=== PATIENT | female | born 1990 | race American Indian/Alaskan Native ===

== ENCOUNTER 2018-06-29 11:22 | Emergency (ER) | payer MEDICAID, OTHER ==
[2018-06-29 11:34] VITALS: BMI 22.7
[2018-06-29 11:37] VITALS: TEMP 97.6; O2SAT 100
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
[2018-06-29 12:56] LABS: GRAN % 63.5 % (50.0-68.0); HEMOGLOBIN 12.6 g/dL (12.0-16.0); LYMPH % 27.7 % (22.0-35.0); MEAN CORPUSCULAR HEMOGLOBIN 26.2 pg (25.0-35.0); MEAN CORPUSCULAR HGB CONC 33.2 g/dl (31.0-37.0); MEAN PLATELET VOLUME 10.3 fl (7.0-11.0); MONO % 7.8 % (1.0-6.0); RBC 4.81 10^6/uL (3.5-6.1); RED CELL DISTRIBUTION WIDTH 13.7 % (11.5-14.5); WHITE BLOOD COUNT 6.9 10^3/ul (4.5-11.0)
[2018-06-29 12:57] LABS: BASO # 0.02 K/mm3 (0.0-2.0); BASO % 0.3 % (0.0-3.0); EOS # 0.1 (0.0-0.7); EOS % 0.7 % (1.5-5.0); GRAN # 4.41 (1.4-6.5); LYMPH # 1.9 (1.2-3.4); MONO # 0.5 (0.1-0.6)
[2018-06-29 13:06] LABS: ALB/GLOB RATIO 1.3 (1.1-1.8); ALBUMIN 4.3 g/dL (3.0-4.8); ALT/SGPT 20 U/L (7-56); AST/SGOT 18 U/L (14-36); BLOOD UREA NITROGEN 10 mg/dL (7-21); CALCIUM 9.3 mg/dL (8.4-10.5); GFR NON-AFRICAN AMERICAN > 60
[2018-06-29] MEDS ORDERED: cefTRIAXone (Rocephin) 250 mg Inj IM STA (13:10)
--- NOTE | 2018-06-29 13:21 | US ---
Date of service: 06/29/2018 Indication: abd pain in preg; r/o miscarriage Comparison: None available Technique: Ob transvaginal ultrasound Findings: The uterus measures approximately 10.9 x 5.8 x 9.0 cm. Anteverted. 2 mm yolk sac. The gestational sac measures 1.3 cm and is compatible with a gestational age of 5 weeks 3 days. No pole identified at this time. The right ovary measures 2.8 x 1.9 x 2.7 cm. The left ovary measures 4.9 x 4.4 x 3.9 cm and contains 2.8 cm cyst. Blood flow was demonstrated to both ovaries. Impression: Intrauterine gestational sac consistent with gestational age 5 weeks 3 days. 2 mm yolk sac evident. No evidence of pole at this time. Recommend clinical correlation including SHELVER consultation, quantitative beta hCG, and follow-up as indicated. 2.8 cm right ovarian cyst.
[2018-06-29 14:03] LABS: URINE BILIRUBIN NEGATIVE (NEGATIVE); URINE BLOOD TRACE-INTACT (NEGATIVE); URINE GLUCOSE (UA) NEGATIVE (NEGATIVE); URINE LEUKOCYTE ESTERASE MODERATE Leu/uL (NEGATIVE); URINE PROTEIN NEGATIVE mg/dL (<30 mg/dL); URINE UROBILINOGEN 0.2 E.U./dL (<1 E.U./dL)
[2018-06-29 14:11] LABS: URINE APPEARANCE CLEAR (CLEAR); URINE COLOR YELLOW (YELLOW)
[2018-06-29 14:16] LABS: URINE AMORPHOUS SEDIMENT FEW; URINE BACTERIA LARGE (NEG); URINE WBC 20 - 25 /hpf (0-6)
[2018-06-29 14:47] VITALS: BP 110/60; PULSE 70; RESP 15
[2018-06-29] MEDS ORDERED: Clotrimazole 1% Vaginal Cream(45 gm) VG SCH (22:00)
== END 2018-06-29 14:46 | disposition home or self-care (01) ==
LOC: ED 11:22
DX: O20.0 Threatened abortion (principal); O23.41 Unspecified infection of urinary tract in pregnancy, first trimester; O98.811 Other maternal infectious and parasitic diseases complicating pregnancy, first trimester; B37.3 Candidiasis of vulva and vagina; Z3A.01 Less than 8 weeks gestation of pregnancy
CPT/HCPCS: 76817; 80053; 81001; 84702; 85025; 86850; 86900; 87086; 87491; 87591; 96372; 99282; J0696

== ENCOUNTER 2018-08-05 09:34 | Emergency (ER) | payer MEDICAID ==
[2018-08-05 09:34] VITALS: BMI 22.7
[2018-08-05 09:43] VITALS: O2SAT 99
--- NOTE | 2018-08-05 10:32 | ED PDOC ---
Arrival/HPI - History of Present Illness Narrative History of Present Illness (Text): 08/05/18 9:44 Patient is a 28 year old at approximately 10 weeks gestation who presented with lower abdominal pain that started yesterday morning. Patient describes the pain as sharp in nature, intermittent. Rates it a 5/10 on pain scale. She has not tried taking anything for the pain. This morning she reports having two episodes of NBNB vomiting. She denies any recent intercourse, vaginal bleeding, fevers/chills, chest pain, palpitations, sob, dysuria. States that although was not planned, it is desired. PMD: [facility] clinic Time/Duration: 24 hours Symptom Onset: Gradual Symptom Course: Unchanged Quality: Other (sharp, period like pain) Severity Level: 5 <Gracie Sidhu - Last Filed: 08/05/18 15:02> <Wilver Stover - Last Filed: 08/05/18 18:19> - General Chief Complaint: Abdominal Pain Time Seen by Provider: 08/05/18 09:44 Past Medical History - Provider Review Nursing Documentation Reviewed: Yes - Infectious Disease Hx of Infectious Diseases: None - Tetanus Immunization Tetanus Immunization: Unknown - Reproductive Menopause: No - Past Medical History Past Medical History: No Previous - Cardiac Hx Cardiac Disorders: No - Pulmonary Hx Respiratory Disorders: No - Neurological Hx Neurological Disorder: No - HEENT Hx HEENT Disorder: No - Renal Hx Renal Disorder: No - Endocrine/Metabolic Hx Endocrine Disorders: No - Hematological/Oncological Hx Blood Disorders: Yes Hx Anemia: Yes - Integumentary Hx Dermatological Disorder: No - Musculoskeletal/Rheumatological Hx Musculoskeletal Disorders: No - Gastrointestinal Hx Gastrointestinal Disorders: No - Genitourinary/Gynecological Hx Genitourinary Disorders: Yes Hx Urinary Tract Infection: Yes - Psychiatric Hx Psychophysiologic Disorder: No Hx Substance Use: No - Past Surgical History Past Surgical History: No Previous - Surgical History Other/Comment: AB - Anesthesia Hx Anesthesia: No - Suicidal Assessment Feels Threatened In Home Enviroment: No <Gracie Sidhu - Last Filed: 08/05/18 15:02> Family/Social History - Physician Review Nursing Documentation Reviewed: Yes Family/Social History: Unknown Family HX Smoking Status: Never Smoked Hx Alcohol Use: No Hx Substance Use: No Hx Substance Use Treatment: No <Gracie Sidhu - Last Filed: 08/05/18 15:02> Allergies/Home Meds <Gracie Sidhu - Last Filed: 08/05/18 15:02> <Wilver Stover - Last Filed: 08/05/18 18:19> Allergies/Adverse Reactions: Allergies No Known Allergies Allergy (Verified 06/19/18 09:26) Review of Systems - Review of Systems Constitutional: Normal. absent: Fatigue, Fevers Eyes: Normal ENT: Normal. absent: Hearing Changes Respiratory: Normal. absent: SOB, Cough, Wheezing Cardiovascular: Normal. absent: Chest Pain, Palpitations Gastrointestinal: Normal, Abdominal Pain, Vomiting. absent: Constipation, Diarrhea, Nausea Genitourinary Female: Normal. absent: Dysuria, Hematuria, Vaginal Bleeding, Vaginal Discharge Musculoskeletal: Normal. absent: Back Pain Skin: Normal. absent: Rash Neurological: Normal. absent: Headache, Dizziness <Gracie Sidhu - Last Filed: 08/05/18 15:02> Physical Exam Vital Signs Reviewed: Yes Vital Signs Temp Pulse Resp BP Pulse Ox 08/05/18 09:39 97.5 F L 83 18 118/72 99 Temperature: Afebrile Blood Pressure: Normal Pulse: Regular Respiratory Rate: Normal Appearance: Positive for: Well-Appearing, Non-Toxic, Comfortable Pain Distress: None Mental Status: Positive for: Alert and Oriented X 3 - Systems Exam Head: Present: Atraumatic, Normocephalic Pupils: Present: PERRL Extroacular Muscles: Present: EOMI Mouth: Present: Moist Mucous Membranes Neck: Present: Normal Range of Motion Respiratory/Chest: Present: Clear to Auscultation, Good Air Exchange. No: R espiratory Distress, Accessory Muscle Use Cardiovascular: Present: Regular Rate and Rhythm, Normal S1, S2 Abdomen: Present: Tenderness (Suprapubic), Normal Bowel Sounds, Other (Gravid abdomen). No: Distention, Peritoneal Signs, Rebound, Guarding Back: Present: Normal Inspection. No: CVA Tenderness Upper Extremity: Present: Normal Inspection Lower Extremity: Present: Normal Inspection Neurological: Present: GCS=15, CN II-XII Intact Skin: Present: Warm, Dry, Normal Color Psychiatric: Present: Alert, Oriented x 3 <Gracie Sidhu - Last Filed: 08/05/18 15:02> Vital Signs Temp Pulse Resp BP Pulse Ox 08/05/18 14:12 98.2 F 68 18 106/58 L 99 08/05/18 12:42 70 16 113/70 08/05/18 09:39 97.5 F L 83 18 118/72 99 <Wilver Stover - Last Filed: 08/05/18 18:19> Medical Decision Making ED Course and Treatment: 08/05/18 09:44 Patient seen and examined at bedside. Patient reports having lower abdominal pain x 1 day that was accomapanied by two episodes of vomiting this morning. On exam, patient with suprapubic tenderness. Will order Transvaginal US, CBC, CMP, Type and Screen, beta hcg, Urinalysis 08/05/18 13:56 Imaging and labs results reviewed. Patient with UTI. Will prescribe Marcobid 100mg PO BID and have patient follow up with OBGYN outpatient. - RAD Interpretation Narrative RAD Interpretations (Text): 08/05/18 13:58 Transvaginal US: Live single intrauterine with estimated gestational age of 10 weeks and 6 days by gestational sac calculation and 11 weeks by crown rump length. heart rate 158 bpm. Clinical Rehabilitation Aide: Radiologist <Gracie Sidhu - Last Filed: 08/05/18 15:02> ED Course and Treatment: In agreement with resident note, which includes further HPI details. Patient was seen and evaluated with resident, came up with plan and treatment together. 28 y/o F p/w suprapubic pain in . On exam, suprapubic tenderness. - Lab Interpretations Lab Results: 08/05/18 11:00 08/05/18 11:00 Lab Results 08/05/18 11:00: Sodium 138, Potassium 3.7, Chloride 107, Carbon Dioxide 23, An ion Gap 12, BUN 6 L, Creatinine 0.7, Est GFR ( Amer) > 60, Est GFR (Non- Af Amer) > 60, Random Glucose 77, Calcium 9.0, Total Bilirubin 0.4, AST 15, ALT 18, Alkaline Phosphatase 44, Total Protein 7.0, Albumin 3.7, Globulin 3.3, Albumin/Globulin Ratio 1.1, Lipase 87 08/05/18 11:00: WBC 6.2, RBC 4.65, Hgb 12.1, Hct 37.1, MCV 79.8 L, MCH 26.0, MCHC 32.6, RDW 13.3, Plt Count 252, MPV 9.6, Gran % 68.0, Lymph % (Auto) 25.4, [place] % (Auto) 5.0, Eos % (Auto) 1.4 L, Baso % (Auto) 0.2, Gran # 4.24, Lymph # (Auto) 1.6, [place] # (Auto) 0.3, Eos # (Auto) 0.1, Baso # (Auto) 0.01 08/05/18 11:00: Blood Type AB POSITIVE, Antibody Screen Negative, BBK History Checked Patient has bt 08/05/18 11:00: Beta HCG, Quant 68670.00 H 08/05/18 10:10: Urine Color Yellow, Urine Appearance Sl cloudy, Urine pH 6.0, Ur Specific [place] 1.025, Urine Protein Negative, Urine Glucose (UA) Negative, Urine Ketones Negative, Urine Blood Small H, Urine Nitrate Negative, Urine Bilirubin Negative, Urine Urobilinogen 0.2, Ur Leukocyte Esterase Small H, Urine RBC 5 - 10, Urine WBC 10 - 15, Ur Epithelial Cells 10 - 12, Urine Bacteria Many, Urine Other Uyeast - RAD Interpretation Radiology Orders: 08/05/18 10:49 OB TRANSVAGINAL [US] Stat <Wilver Stover - Last Filed: 08/05/18 18:19> Disposition/Present on Arrival - Present on Arrival Any Indicators Present on Arrival: No History of DVT/PE: No History of Uncontrolled Diabetes: No Urinary Catheter: No History of Decub. Ulcer: No History Surgical Site Infection Following: None - Disposition Have Diagnosis and Disposition been Completed?: Yes Disposition Time: 13:44 Patient Plan: Discharge <Gracie Sidhu - Last Filed: 08/05/18 15:02> <Wilver Stover - Last Filed: 08/05/18 18:19> - Disposition Diagnosis: Urinary tract infection Disposition: HOME/ ROUTINE Condition: GOOD Discharge Instructions (ExitCare): Urinary Tract Infections in Adults Additional Instructions: - Please complete course of antibiotics - Follow up with [facility] within 3-5 days - If symptoms worsen, please return to the ED Prescriptions: Nitrofurantoin Macrocrystals [Macrobid] 100 mg PO BID #14 cap Forms: [employer] (Welsh)
[2018-08-05 11:27] LABS: ALB/GLOB RATIO 1.1 (1.1-1.8); ALBUMIN 3.7 g/dL (3.0-4.8); ALT/SGPT 18 U/L (7-56); AST/SGOT 15 U/L (14-36); BLOOD UREA NITROGEN 6 mg/dL (7-21); GFR NON-AFRICAN AMERICAN > 60; LIPASE 87 U/L (23-300)
[2018-08-05 11:30] LABS: BASO # 0.01 K/mm3 (0.0-2.0); BASO % 0.2 % (0.0-3.0); EOS # 0.1 (0.0-0.7); EOS % 1.4 % (1.5-5.0); GRAN # 4.24 (1.4-6.5); HEMOGLOBIN 12.1 g/dL (12.0-16.0); LYMPH # 1.6 (1.2-3.4); LYMPH % 25.4 % (22.0-35.0); MEAN CELL VOLUME 79.8 fl (80.0-105.0); MEAN CORPUSCULAR HGB CONC 32.6 g/dl (31.0-37.0); MEAN PLATELET VOLUME 9.6 fl (7.0-11.0); MONO # 0.3 (0.1-0.6); RBC 4.65 10^6/uL (3.5-6.1); RED CELL DISTRIBUTION WIDTH 13.3 % (11.5-14.5); WHITE BLOOD COUNT 6.2 10^3/uL (4.5-11.0)
[2018-08-05 12:56] LABS: URINE BILIRUBIN NEGATIVE (NEGATIVE); URINE BLOOD SMALL (NEGATIVE); URINE GLUCOSE (UA) NEGATIVE (NEGATIVE); URINE LEUKOCYTE ESTERASE SMALL Leu/uL (NEGATIVE); URINE PROTEIN NEGATIVE mg/dL (<30 mg/dL); URINE UROBILINOGEN 0.2 E.U./dL (<1 E.U./dL)
[2018-08-05 12:57] LABS: URINE APPEARANCE SL CLOUDY (CLEAR); URINE COLOR YELLOW (YELLOW)
--- NOTE | 2018-08-05 13:00 | US ---
Date of service: 08/05/2018 Indication: 10 weeks preg, abd pain r/o torsion, assess cervix Comparison: Ob transvaginal ultrasound performed 06/29/18 Technique: Transvaginal pelvic ultrasound. Findings: The uterus measures approximately 9.8 x 7.4 x 8.4 cm. Cervix length measures approximately 3.1 cm. There is a single intrauterine fetus present. Yolk sac is not visualized. The gestational sac measures 5.1 cm and is compatible with a gestational age of 10 weeks 6 days. The crown-rump length measures 4.2 cm and is compatible with a gestational age of 11 weeks 0 days. There is heart motion which measured 158.8 BPM. The right ovary measures 1.8 x 1.0 x 0.9 cm. The left ovary measures 2.7 x 2.1 x 2.7 cm and contains 1.1 x 0.9 x 0.8 cm cyst. Blood flow was demonstrated to both ovaries. Impression: Live single intrauterine with estimated gestational age 10 weeks 6 days by gestational sac calculation and 11 weeks 0 days by crown-rump length. heart rate 158.8 bpm. Advise an anomaly screen at 16-18 weeks gestational age.
[2018-08-05 13:33] LABS: URINE BACTERIA MANY (NEG)
[2018-08-05 14:12] VITALS: TEMP 98.2
[2018-08-05 14:16] VITALS: BP 106/60; PULSE 72; RESP 16
== END 2018-08-05 14:14 | disposition home or self-care (01) ==
LOC: ED 09:34
DX: O23.41 Unspecified infection of urinary tract in pregnancy, first trimester (principal); Z3A.10 10 weeks gestation of pregnancy